=== PATIENT | male | born 1980 | race American Indian/Alaskan Native ===

== ENCOUNTER 2017-10-01 18:06 | Inpatient (IN) | payer SELFPAY ==
[2017-10-01 18:14] VITALS: BMI 24.9
--- NOTE | 2017-10-01 18:38 | C.PDOC ---
History Of Present Illness 37 year old male presents to the emergency department requesting detox from alcohol. Patient states that he drinks a pint a day a tried detoxing a year ago but was unsuccessful. Patient denies withdrawal seizures, and has no medical problems but states that he is unable to keep a job due to his alcoholism. Time Seen by Provider: 10/01/17 18:19 Chief Complaint (Nursing): Substance Abuse Modifying Factor(s): Alcohol Past Medical History Reviewed: Historical Data, Nursing Documentation, Vital Signs Vital Signs: Last Vital Signs Temp 98.1 F 10/02/17 00:10 Pulse 76 10/02/17 00:10 Resp 16 10/02/17 00:10 BP 97/62 L 10/02/17 00:10 Pulse Ox 98 10/02/17 00:10 - Medical History PMH: Arthritis, HTN Surgical History: No Surg Hx - [facility] Procedures ALCOHOL REHABILITATION AND DETOXIFICATION (09/16/14) Family History: States: No Known Family Hx - Social History Hx Tobacco Use: Yes Hx Alcohol Use: Yes Hx Substance Use: No - Immunization History Hx Tetanus Toxoid Vaccination: No Hx Influenza Vaccination: No Hx Pneumococcal Vaccination: No Review Of Systems Cardiovascular: Negative for: Chest Pain Gastrointestinal: Negative for: Nausea, Vomiting, Diarrhea Neurological: Negative for: Seizures Physical Exam - Physical Exam Appears: No Acute Distress, Other (intoxicated) Cardiovascular: Rhythm Regular Respiratory: Normal Breath Sounds Gastrointestinal/Abdominal: Normal Exam, Soft, No Tenderness ED Course And Treatment - Laboratory Results Result Diagrams: 10/01/17 19:18 10/01/17 19:18 Lab Interpretation: No Acute Changes (ETOH 250) O2 Sat by Pulse Oximetry: 97 (RA) Pulse Ox Interpretation: Normal Progress Note: Plan: CMP. CBC. Alcohol Serum. Drug Screen. Urinalysis. 10: 30 Patient medically cleared for detox admission. Disposition - Disposition Disposition: HOSPITALIZED Disposition Time: 00:53 Condition: STABLE - POA Present On Arrival: None - Clinical Impression Clinical Impression: Alcohol use disorder, severe, dependence - Scribe Statement The provider has reviewed the documentation as recorded by the Scribe (Leeroy Anderson) Provider Attestation: All medical record entries made by the Scribe were at my direction and personally dictated by me. I have reviewed the chart and agree that the record accurately reflects my personal performance of the history, physical exam, medical decision making, and the department course for this patient. I have also personally directed, reviewed, and agree with the discharge instructions and disposition.
[2017-10-01 18:46] LABS: SQUAMOUS EPITHIAL < 1 /hpf (0-5); URINE BILIRUBIN NEGATIVE (NEGATIVE); URINE BLOOD NEGATIVE (NEGATIVE); URINE CLARITY Clear (Clear); URINE COLOR Yellow (YELLOW); URINE GLUCOSE (UA) NORMAL (Normal); URINE LEUKOCYTE ESTERASE TRACE Leu/uL (Negative); URINE PROTEIN NEGATIVE (NEGATIVE); URINE UROBILINOGEN NORMAL mg/dL (0.2-1.0)
[2017-10-01 19:15] LABS: BARBITURATES, UR NEGATIVE (NEGATIVE); BENZODIAZEPINES, UR NEGATIVE (NEGATIVE); OPIATES, UR NEGATIVE (NEGATIVE)
[2017-10-01 19:18] LABS: PHENCYCLIDINE, UR POSITIVE (NEGATIVE)
[2017-10-01 19:22] LABS: BASO % 0.9 % (0.0-2.0); EOS # 0.1 K/uL (0.0-0.7); EOS % 1.8 % (0.0-4.0); LYMPH # 2.1 K/uL (1.0-4.3); LYMPH % 40.5 % (20.0-40.0); MEAN CELL VOLUME 98.7 fL (80.0-94.0); MEAN CORPUSCULAR HEMOGLOBIN 33.9 pg (27.0-31.0); MEAN CORPUSCULAR HGB CONC 34.4 g/dL (33.0-37.0); MONO # 0.8 K/uL (0.0-0.8); MONO % 14.8 % (0.0-10.0); NEUT # 2.2 K/uL (1.8-7.0); NRBC % 0.1 % (0.0-2.0); RBC 3.83 Mil/uL (4.40-5.90); RED CELL DISTRIBUTION WIDTH 14.1 % (11.5-14.5); WHITE BLOOD COUNT 5.1 K/uL (4.8-10.8)
[2017-10-01 19:34] LABS: ALB/GLOB RATIO 1.4 (1.0-2.1); ALT/SGPT 72 U/L (21-72); AST/SGOT 40 U/L (17-59); BLOOD UREA NITROGEN 9 mg/dL (9-20); CALCIUM 8.5 mg/dl (8.6-10.4); GFR AFRICAN-AMERICAN > 60; GFR NON-AFRICAN AMERICAN > 60
[2017-10-02 01:19] VITALS: O2SAT 100
[2017-10-02 06:32] VITALS: BP 96/61; PULSE 71; RESP 20; TEMP 97.8
--- NOTE | 2017-10-02 08:24 | PCM.PSYCH ---
Initial Psychiatric Evaluation - Initial Psychiatric Evaluation Type of Admission: Voluntary Legal Status: Capacity Chief Complaint (in patient's own words): Pt is not seen. He came for alcohol detox. History of Present Illness and Precipitating Events: Pt is not seen, as he is being discharged for smoking on the unit, in a room where there is a patient with asthma, no less. He understood the reason and agreed. This is from PES note in ED: Pt. is a 37 y/o AA Unemployed male that was pre-screened for alcohol detox. Pt. was last admitted to [facility] detox unit in September 2014. Pt. reports that he has been drinking more because he is unemployed and cant find a job. Pt. reports that things began to go downhill after the of his grandmother. Pt. also reports that both his parents were alcoholics. Pt. reports that he [facility] upon discharge from the detox unit. Pt. reports that he also has been from his girlfriend. Pt. has a 7 year old daughter that he does not see on a regular basis. Pt. appeared irritable. Pt. also was experiencing some vomiting prior to PES worker interviewing him. Pt. was alert and oriented x3. Pt. speech was low volume and he had minimal eye contact. Pt. denies any S/H ideation. Pt. also denies any A/V/T Hallucinations. Past Psychiatric History - Past Psychiatric History Pertinent Medical Hx (Current Medical&Sleep Prob, Allergies): Allergies Allergy/AdvReac Type Severity Reaction Status Date / Time No Known Allergies Allergy Verified 10/01/17 18:13 No Known Home Med [No Known Home Med] 09/16/14 DSM 5 DX - DSM 5 DSM 5 Diagnosis: Alcohol use d/o - severe - Recommended/Plan of Treatment Treatment Recommendations and Plan of Treatment: Pt is discharged home due to smoking on the unit. See DC note.
--- NOTE | 2017-10-02 08:27 | PCM.PYCHDC ---
Mental Status Examination - Mental Status Examination Orientation: Person (He is not seen by the scenario writer, thus no MSE can be performed. ) Discharge Summary - Discharge Note Reason for Hospitalization: Alcohol detox Laboratory Data: Abnormal Lab Results 10/01/17 10/01/17 10/01/17 18:39 18:39 19:18 WBC 5.1 RBC 3.83 L Hgb 13.0 Hct 37.8 MCV 98.7 H MCH 33.9 H MCHC 34.4 RDW 14.1 Plt Count 173 MPV 7.0 L Neut % (Auto) 42.0 L Lymph % (Auto) 40.5 H Iron % (Auto) 14.8 H Eos % (Auto) 1.8 Baso % (Auto) 0.9 Neut # (Auto) 2.2 Lymph # (Auto) 2.1 Iron # (Auto) 0.8 Eos # (Auto) 0.1 Baso # (Auto) 0.0 Sodium Potassium Chloride Carbon Dioxide Anion Gap BUN Creatinine Est GFR ( Amer) Est GFR (Non-Af Amer) Random Glucose Calcium Total Bilirubin AST ALT Alkaline Phosphatase Total Protein Albumin Globulin Albumin/Globulin Ratio Urine Color Yellow Urine Clarity Clear Urine pH 5.0 Ur Specific [place] 1.011 Urine Protein Negative Urine Glucose (UA) Normal Urine Ketones Negative Urine Blood Negative Urine Nitrate Negative Urine Bilirubin Negative Urine Urobilinogen Normal Ur Leukocyte Esterase Trace Urine WBC (Auto) 7 H Urine RBC (Auto) 1 Ur Squamous Epith Cells < 1 Urine Opiates Screen Negative Urine Methadone Screen Negative Ur Barbiturates Screen Negative Ur Phencyclidine Scrn Positive H Ur Amphetamines Screen Negative U Benzodiazepines Scrn Negative U Oth Cocaine Metabols Negative U Cannabinoids Screen Positive H Alcohol, Quantitative 10/01/17 19:18 WBC RBC Hgb Hct MCV MCH MCHC RDW Plt Count MPV Neut % (Auto) Lymph % (Auto) Iron % (Auto) Eos % (Auto) Baso % (Auto) Neut # (Auto) Lymph # (Auto) Iron # (Auto) Eos # (Auto) Baso # (Auto) Sodium 145 Potassium 3.7 Chloride 108 H Carbon Dioxide 23 Anion Gap 17 BUN 9 Creatinine 0.8 Est GFR ( Amer) > 60 Est GFR (Non-Af Amer) > 60 Random Glucose 94 Calcium 8.5 L Total Bilirubin 0.5 AST 40 ALT 72 D Alkaline Phosphatase 46 Total Protein 7.0 Albumin 4.0 Globulin 3.0 Albumin/Globulin Ratio 1.4 Urine Color Urine Clarity Urine pH Ur Specific [place] Urine Protein Urine Glucose (UA) Urine Ketones Urine Blood Urine Nitrate Urine Bilirubin Urine Urobilinogen Ur Leukocyte Esterase Urine WBC (Auto) Urine RBC (Auto) Ur Squamous Epith Cells Urine Opiates Screen Urine Methadone Screen Ur Barbiturates Screen Ur Phencyclidine Scrn Ur Amphetamines Screen U Benzodiazepines Scrn U Oth Cocaine Metabols U Cannabinoids Screen Alcohol, Quantitative 250 H Consultations:: List each consultation separately and include: 1. Reason for request. 2. Findings. 3. Follow-up Summary of Hospital Course include:: 1. Description of specific treatment plan utilized for patients during their course of treatmen. 2. Summarize the time- course for resolution of acute symptoms and/or regressed behaviors. 3. Describe issues identified and worked on during hospitalization. 4. Describe medication utilized. 5. Describe medical problems identified and treated. 6. Reassessment of suicide risk Summary of Hospital Course: Pt is not seen, as he is being discharged for smoking on the unit, in a room where there is a patient with asthma, no less. He understood. He is found to be smoking almost within an hour or two after arriving on the unit. From PES note: Pt. is a 37 y/o AA Unemployed male that was pre-screened for alcohol detox. Pt. was last admitted to [facility] detox unit in September 2014. Pt. reports that he has been drinking more because he is unemployed and cant find a job. Pt. reports that things began to go downhill after the of his grandmother. Pt. also reports that both his parents were alcoholics. Pt. reports that he wants to do [facility] treatment upon discharge from the detox unit. Pt. reports that he also has been from his girlfriend. Pt. has a 7 year old daughter that he does not see on a regular basis. Pt. appeared irritable. Pt. also was experiencing some vomiting prior to PES worker interviewing him. Pt. was alert and oriented x3. Pt. speech was low volume and he had minimal eye contact. Pt. denies any S/H ideation. Pt. also denies any A/V/T Hallucinations. - Final Diagnosis (DSM 5) Condition upon Discharge: STABLE DSM 5: Alcohol use d/o - severe Disposition: AGAINST MEDICAL ADVICE Follow-up Treatment Plan: Use relapse prevention skills Return to ER or call 911 if suicidal, homicidal or symptoms relapse. Stay away from stress, alcohol and drugs. See primary doctor regularly and get labs.
[2017-10-02] MEDS ORDERED: Multiple Vitamins Tab PO SCH (10:00)
== END 2017-10-02 08:50 | disposition left against medical advice (07) | DRG 894 ==
LOC: C.ER 18:06 → C.9E 10-02 00:54 → C.7D 10-02 02:12
PROVIDERS: ADMIT Psychiatry & Neurology Psychiatry; ATTEND Psychiatry & Neurology Psychiatry
DX: F10.20 Alcohol dependence, uncomplicated (principal); F17.210 Nicotine dependence, cigarettes, uncomplicated; I10 Essential (primary) hypertension; M19.90 Unspecified osteoarthritis, unspecified site; Z91.19 Patient's noncompliance with other medical treatment and regimen